=== PATIENT | female | born 1995 | race Caucasian/White ===

== ENCOUNTER → 2021-08-18 | Outpatient (CLI) | payer OTHER | LOC: KOH-I 16:06 | DX: R06.02 Shortness of breath (principal) | CPT/HCPCS: 71046 ==

== ENCOUNTER → 2022-05-22 | Outpatient (CLI) | payer OTHER ==
[2022-05-22 12:41] LABS: HEMOGLOBIN 14.2 gm/dl (12.3-15.3); RED BLOOD COUNT 4.58 M/UL (4.00-5.10); WHITE BLOOD COUNT 10.7 K/UL (4.5-11.0)
[2022-05-22 13:32] LABS: BUN/CREATININE RATIO 18 (0-10)
[2022-05-26 08:14] LABS: HEMOGLOBIN A1C 5.9 % (4.8-5.6)
[2022-05-26 08:14] LABS: CHOLESTEROL, TOTAL 171 mg/dL (100-199); HDL CHOLESTEROL 46 mg/dL (>39); LDL CHOLESTEROL CALC 109 mg/dL (0-99); LDL/HDL RATIO 2.4 ratio (0.0-3.2); T. CHOL/HDL RATIO 3.7 ratio (0.0-4.4); TRIGLYCERIDES 84 mg/dL (0-149)
== END ==
LOC: LAB 11:51
PROVIDERS: Nurse Practitioner Family
DX: L67.8 Other hair color and hair shaft abnormalities (principal); R63.5 Abnormal weight gain
CPT/HCPCS: 36415; 80053; 80061; 82570; 82607; 83036; 84156; 84439; 84443; 85025